=== PATIENT | female | born 1945 | race Caucasian/White ===

== ENCOUNTER → 2017-07-17 | Outpatient (CLI) | payer MEDICARE ==
[~2017-07-17] MED LIST: ALBUAER3 INH; AMLO10TA2 PO; CALC1TAB87 PO; LYRI150C PO; MAGN250T11 PO; METO10TA PO; METO25TA3 PO; MONT10TA4 PO; NEXI40CA PO; ONDA8TAB7 PO; POTA10CA PO; VITA100064 PO; VITA500T83 PO
[2017-07-17 10:24] LABS: BILIRUBIN, URINE NEG (NEG); BLOOD, URINE NEG (NEG); GLUCOSE,URINE NEG (NEG); KETONE, URINE NEG (NEG); MUCUS URINE FEW /lpf (OCC); NITRITE,URINE NEG (NEG); TRANSITIONAL EPI CELLS, URINE <1 /hpf; URINE COLOR YELLOW (YELLW/STRAW); URINE LEUKOCYTE ESTERASE TRACE (NEG)
[2017-07-17 10:25] LABS: AUTOMATED NEUTROPHIL # 3.3 TH/MM3 (1.8-7.7); BASOPHIL % 0.7 % (0.0-2.0); EOSINOPHIL # 0.1 TH/MM3 (0-0.4); EOSINOPHIL % 2.7 % (0.0-4.0); HEMATOCRIT 40.6 % (35.0-46.0); HEMOGLOBIN 13.6 GM/DL (11.6-15.3); LYMPH % 25.5 % (9.0-44.0); LYMPHOCYTE # 1.4 TH/MM3 (1.0-4.8); MEAN CELL VOLUME 87.2 FL (80.0-100.0); MEAN CORPUSCULAR HEMOGLOBIN 29.2 PG (27.0-34.0); MEAN CORPUSCULAR HGB CONC 33.5 % (32.0-36.0); MEAN PLATELET VOLUME 8.4 FL (7.0-11.0); MONO % 10.8 % (0.0-8.0); MONOCYTE # 0.6 TH/MM3 (0-0.9); NEUT % 60.3 % (16.0-70.0); PLATELET COUNT 193 TH/MM3 (150-450); RED BLOOD COUNT 4.66 MIL/MM3 (4.00-5.30); WHITE BLOOD COUNT 5.5 TH/MM3 (4.0-11.0)
--- NOTE | 2017-07-17 10:30 | RADRPT ---
EXAM DATE/TIME: 07/17/2017 10:14 [place] COMPARISON: No previous studies available for comparison. INDICATIONS : Evaluate for penumonia, pneumothorax, or communicable disease. Pre op for anterior colon resection. MEDICAL HISTORY : None. SURGICAL HISTORY : None. ENCOUNTER: Initial ACUITY: 1 day PAIN SCORE: 0/10 LOCATION: chest FINDINGS: Mild airspace disease in the medial left lung base. Cardiac silhouette is mildly enlarged. Prominent S. shaped scoliosis of the thoracolumbar spine. Old left-sided rib fractures. CONCLUSION: 1. Prominent scoliosis of the thoracolumbar spine with airspace disease in the medial left lung base likely reflecting atelectasis/scarring. Troy Garrison MD on July 17, 2017 at 10:23 Board Certified Radiologist. This report was verified electronically.
[2017-07-17 10:32] LABS: PROTHROMBIN TIME - PATIENT 10.3 SEC (9.8-11.6)
[2017-07-17 10:53] LABS: ALBUMIN 3.7 GM/DL (3.4-5.0); AST (GOT) 15 U/L (15-37); BICARBONATE 26.5 MEQ/L (21.0-32.0); BLOOD UREA NITROGEN 22 MG/DL (7-18); CALCIUM 8.3 MG/DL (8.5-10.1); CHLORIDE 107 MEQ/L (98-107); CREATININE 0.84 MG/DL (0.50-1.00); GLOMERULAR FILTRATION RATE 66 ML/MIN (>89); GLUCOSE,FASTING 85 MG/DL (74-99); SODIUM (NA) 141 MEQ/L (136-145)
[2017-07-17 10:54] LABS: ALT (GPT) 16 U/L (10-53)
[2017-07-17 10:56] LABS: ALKALINE PHOSPHATASE 86 U/L (45-117); TOTAL BILIRUBIN ADULT 0.4 MG/DL (0.2-1.0); TOTAL PROTEIN 7.2 GM/DL (6.4-8.2)
--- NOTE | 2017-07-18 06:48 | EKG ---
Date Performed: 07/17/2017 Time Performed: 09:29:27 PTAGE: 72 years EKG: SINUS BRADYCARDIA WITH FIRST DEGREE AV BLOCK ABNORMAL ECG NO PRIOR TRACING DOCTOR: Jose L Mercado Interpretating Date/Time 07/18/2017 06:46:29
== END ==
LOC: CPRE 09:00
PROVIDERS: ATTEND Colon & Rectal Surgery
DX: Z01.810 Encounter for preprocedural cardiovascular examination (principal); Z01.811 Encounter for preprocedural respiratory examination; Z01.812 Encounter for preprocedural laboratory examination; Z79.01 Long term (current) use of anticoagulants
CPT/HCPCS: 36415; 71046; 80053; 81001; 85025; 85610; 85730; 93005

== ENCOUNTER 2017-07-24 11:52 | Inpatient (IN) | payer MEDICARE ==
[~2017-07-24] VITALS: Ht 172.7 cm; Wt 82.3 kg
[2017-07-24] MEDS ORDERED: VECURONIUM BROMIDE 20 MG VIAL IV ONE (12:00)
[2017-07-24] MEDS ORDERED: DEXAMETHASONE SOD PHOS 4 MG/ML VIAL IV ONE (12:00)
[2017-07-24] MEDS ORDERED: ePHEDrine/NS 25 MG/5 ML SYRINGE IV ONE (12:00)
[2017-07-24] MEDS ORDERED: PROPOFOL 200 MG/20 ML AMP IV ONE (12:00)
[2017-07-24] MEDS ORDERED: ONDANSETRON HCL 4 MG/2 ML VIAL IV ONE (12:00)
[2017-07-24] MEDS ORDERED: ROCURONIUM INJ 50 MG/5 ML SYRINGE IV PUSH ONE (12:00)
[2017-07-24] MEDS ORDERED: SODIUM CHLORIDE 0.9% 20 ML VIAL IV ONE (12:00)
[2017-07-24] MEDS ORDERED: GLYCOPYRROLATE 1 MG/5 ML SYRINGE IV PUSH ONE (12:00)
[2017-07-24] MEDS ORDERED: LIDOCAINE HCL 1% PF 5 ML SYRINGE OTHER ONE (12:00)
[2017-07-24] MEDS ORDERED: SODIUM CHLORID 0.9% 500 ML IV PRN (13:00)
[2017-07-24] MEDS ORDERED: ALVIMOPAN 12 MG CAPSULE - On Call PO SCH (13:00)
[2017-07-24] MEDS ORDERED: LACTATED RINGER'S 1000 ML IV PRN (13:00)
[2017-07-24] MEDS ORDERED: POVIDONE IODINE 5% (ANTISEPSIS KIT) 4 APPLICATIONS EACH NARE PRN (13:00)
[2017-07-24] MEDS ORDERED: METRONIDAZOLE 500 MG/100 ML ISONTONIC SOLN IV SCH (13:00)
[2017-07-24] MEDS ORDERED: METOPROLOL TARTRATE 25 MG TAB PO PRN (13:00)
[2017-07-24] MEDS ORDERED: CHLORHEXIDINE GLUCONATE 2 % 1 PACK (2 CLOTHS) TOPICAL PRN (13:00)
[2017-07-24] MEDS ORDERED: ceFAZolin 1,000 MG/NS 100 ML IV SCH ×2 (13:00)
[2017-07-24] MEDS ORDERED: SCOPOLAMINE 1.5 MG PATCH ONE (13:18)
[2017-07-24] MEDS ORDERED: APREPITANT 40 MG CAP ONE (13:19)
--- NOTE | 2017-07-24 14:09 | PD.HP.UP ---
H&P Update Note The Pre-Admit History and Physical Examination regarding the above named patient was reviewed (including, but not limited to, vital signs, heart, lungs, co-morbid conditions), and upon re-examination it is noted that: the patient's condition has not significantly changed since the last examination. Jerman Geiger MD Jul 24, 2017 14:09
[2017-07-24] MEDS ORDERED: PROPOFOL 500 MG/50 ML INJ 0 ML ONE (14:28)
[2017-07-24] MEDS ORDERED: KETAMINE HCL 500 MG/5 ML VIAL ONE (14:29)
[2017-07-24] MEDS ORDERED: ACETAMINOPHEN 1000 MG/100 ML 100 ML IV ONE (14:29)
[2017-07-24] MEDS ORDERED: LIDOCAINE HCL 2% 20 ML VIAL ONE ×2 (14:34→14:36)
[2017-07-24] MEDS ORDERED: PROPOFOL 500 MG/50 ML INJ 150 ML ONE (14:35)
[2017-07-24] MEDS ORDERED: LIDOCAINE HCL 1% PF 5 ML AMPULE ONE ×2 (14:35→14:37)
--- NOTE | 2017-07-24 15:28 | PD.OP ---
Operative Report Date of Surgery: Jul 24, 2017 Preoperative Diagnosis: (1) Diverticulitis Postoperative Diagnosis: (1) Diverticulitis Procedure: Cystoscopy and placement of bilateral ureteral catheters Anesthesia: General Surgeon: Sandeep Wei Spiral Binder(s): None Operation and Findings: Indication for urologic procedures: Consulted intraoperatively to place bilateral ureteral catheters to aid in visualization of this patient's ureters during her colorectal procedure. Urologic surgery procedures in detail: Concurrent with the colorectal surgeons, I proceeded with cystoscopy and placement of bilateral ureteral catheters as follows: Initially cystoscopic evaluation was performed utilizing the rigid cystoscope with the 22 Australian sheath and 30 lens. Both right and left ureteral orifices were in correct anatomic position draining clear yellow urine. There were no areas suspicious for tumor or fistula formation. There was some diffuse mild erythema throughout the bladder consistent with chronic cystitis. No other abnormalities were seen. I then proceeded with placing a sensor 0.035 wire up the patient's left ureter until a small amount of resistance was met. A 6 Australian open-ended ureteral catheter was then advanced over this wire 25 cm in a cephalad direction. With the catheter in place the wire was withdrawn and reintroduced through secondary site via the cystoscope. In similar fashion, the contralateral side was accomplished. With both catheters in place, the cystoscope and wire were withdrawn and a 16 Australian 10 cc García catheter was placed. The ureteral catheters were then anchored to the García via a connector. All 3 catheters were then placed to gravity drainage. This completes the urologic surgery portion of combined procedures on this patient. Sandeep Wei MD Jul 24, 2017 15:28
[2017-07-24] MEDS ORDERED: SUGAMMADEX SODIUM 200 MG/2 ML VIAL IV PUSH ONE (16:36)
[2017-07-24] MEDS ORDERED: MORPHINE SULFATE 30 MG/30 ML PCA IV SCH (17:00)
[2017-07-24] MEDS ORDERED: ACETAMINOPHEN 325 MG TAB PO PRN (17:00)
[2017-07-24] MEDS ORDERED: Post-op Orders (for Pharmacy) XX ONE (17:00)
[2017-07-24] MEDS: METOPROLOL TARTRATE 25 MG TAB PO SCH (17:00)
[2017-07-24] MEDS: PREGABALIN 75 MG CAP PO SCH (17:00)
[2017-07-24] MEDS ORDERED: ALBUTEROL SULFATE 90 MCG/ACT HFA 8 GM INHALER INH PRN (17:00)
[2017-07-24] MEDS ORDERED: POTASSIUM CHLOR 20 MEQ PREMIX 100 ML IV PRN (17:00)
[2017-07-24] MEDS ORDERED: ENALAPRILAT 2.5 MG/2 ML VIAL IV PUSH PRN (17:00)
[2017-07-24] MEDS ORDERED: BENZOCAINE 6 MG/MENTHOL 10 MG LOZENGE BUCCAL PRN (17:00)
[2017-07-24] MEDS ORDERED: NALOXONE HCL 0.4 MG/ML AMP IV PUSH PRN (17:00)
[2017-07-24] MEDS ORDERED: POTASSIUM CHLOR 40 MEQ PREMIX 100 ML IV PRN (17:00)
[2017-07-24] MEDS ORDERED: DO NOT ADM ANY ANTICOAGULANT DRUGS PRN (17:06)
[2017-07-24] MEDS ORDERED: MIDAZOLAM HCL 2 MG/2 ML VIAL ONE (17:11)
[2017-07-24] MEDS: D5-NS + KCL 20 MEQ INJ 1,000 ML IV SCH ×2 (17:40→22:29)
[2017-07-24] MEDS ORDERED: *ONDANSETRON 4 MG VIAL PERIprocedural Use ONLY ONE (18:25)
[2017-07-24 18:41] VITALS: BP 127/72; PULSE 69; RESP 16; TEMP 98; O2SAT 92
[2017-07-24] MEDS: DEXT 5%-NACL 0.9% 1000 ML INJ 1,000 ML IV SCH ×3 (18:42→23:56)
[2017-07-24] MEDS: ONDANSETRON HCL 4 MG/2 ML VIAL IV PUSH PRN (19:02)
[2017-07-24 20:00] VITALS: BP 129/65; PULSE 68; PULSE 70; RESP 16; TEMP 97.6; O2SAT 93
[2017-07-24 20:12] VITALS: PULSE 73
[2017-07-24] MEDS: METOCLOPRAMIDE HCL 10 MG/2 ML VIAL IVS SCH (20:54)
[2017-07-24] MEDS: metroNIDAZOLE 500 MG INJ 100 ML IV SCH (20:54)
[2017-07-24] MEDS: MONTELUKAST SODIUM 10 MG TAB PO SCH (20:54)
[2017-07-24 21:00] VITALS: PULSE 74
[2017-07-24] MEDS: KETOROLAC TROMETHAMINE 30 MG/ML (IVP) VIAL IVP PRN (21:14)
[2017-07-24 22:00] VITALS: PULSE 76
[2017-07-24 23:00] VITALS: PULSE 78
[2017-07-25] VITALS (16 sets, daily range): BP systolic 142–153; BP diastolic 65–95; PULSE 66–92; RESP 16–18; TEMP 98–99.1; O2SAT 92–96
[2017-07-25] MEDS: D5-NS + KCL 20 MEQ INJ 1,000 ML IV SCH ×3 (04:30→23:41)
[2017-07-25] MEDS: METOCLOPRAMIDE HCL 10 MG/2 ML VIAL IVS SCH ×2 (04:51→09:54)
[2017-07-25] MEDS: metroNIDAZOLE 500 MG INJ 100 ML IV SCH ×2 (04:51→13:27)
[2017-07-25] MEDS: PCA - TOTAL MG MORPHINE DELIVERED PER SHIFT SCH ×3 (06:29→22:00)
[2017-07-25] MEDS: ONDANSETRON HCL 4 MG/2 ML VIAL IV PUSH PRN ×3 (07:06→20:01)
[2017-07-25 07:29] LABS: AUTOMATED NEUTROPHIL # 9.8 TH/MM3 (1.8-7.7); LYMPH % 4.6 % (9.0-44.0); LYMPHOCYTE # 0.5 TH/MM3 (1.0-4.8); MEAN CELL VOLUME 86.9 FL (80.0-100.0); MEAN CORPUSCULAR HEMOGLOBIN 28.9 PG (27.0-34.0); MEAN CORPUSCULAR HGB CONC 33.2 % (32.0-36.0); MEAN PLATELET VOLUME 8.7 FL (7.0-11.0); MONO % 7.6 % (0.0-8.0); MONOCYTE # 0.9 TH/MM3 (0-0.9); NEUT % 87.8 % (16.0-70.0); PLATELET COUNT 160 TH/MM3 (150-450); RED BLOOD COUNT 4.48 MIL/MM3 (4.00-5.30); RED CELL DISTRIBUTION WIDTH 14.5 % (11.6-17.2); WHITE BLOOD COUNT 11.1 TH/MM3 (4.0-11.0)
[2017-07-25 07:47] LABS: BICARBONATE 20.2 MEQ/L (21.0-32.0); CALCIUM 8.2 MG/DL (8.5-10.1); CREATININE 0.79 MG/DL (0.50-1.00)
[2017-07-25] MEDS ORDERED: ALVIMOPAN 12 MG CAPSULE - Post-op dosing PO SCH (09:00)
[2017-07-25] MEDS: PANTOPRAZOLE SOD 40 MG DELAYED RELEASE TAB PO SCH (09:54)
[2017-07-25] MEDS: PREGABALIN 75 MG CAP PO SCH (09:54)
[2017-07-25] MEDS: PANTOPRAZOLE SODIUM 40 MG VIAL IVP SCH (09:54)
[2017-07-25] MEDS: METOPROLOL TARTRATE 25 MG TAB PO SCH (09:54)
[2017-07-25] MEDS: KETOROLAC TROMETHAMINE 30 MG/ML (IVP) VIAL IVP PRN ×2 (14:19→21:51)
[2017-07-25] MEDS: PROMETHAZINE INJ 25 MG/ML VIAL IM PRN ×2 (15:12→20:00)
--- NOTE | 2017-07-25 16:07 | HHI.PR ---
Subjective Remarks C/R Surg POD #1 afebrile, VSS UO good stent dc'd Objective - Vital Signs Date Time Temp Pulse Resp B/P (MAP) Pulse Ox O2 Delivery O2 Flow Rate FiO2 07/25/17 11:39 98.0 81 17 147/65 (92) 96 07/25/17 08:04 Nasal Cannula 2.00 Result Diagram: 07/25/17 0526 07/25/17 05 Objective Remarks PE alert Abd - soft, wound dry, min tympany A/P Assessment and Plan Imp: stable, OOB decr IVF tx to floor Jerman Geiger MD Jul 25, 2017 16:07
[2017-07-25] MEDS: ALVIMOPAN 12 MG CAPSULE PO SCH (21:00)
[2017-07-25] MEDS: MONTELUKAST SODIUM 10 MG TAB PO SCH (21:00)
[2017-07-26] VITALS (22 sets, daily range): BP systolic 131–164; BP diastolic 69–92; PULSE 64–86; RESP 16–18; TEMP 97.9–98.6; O2SAT 91–96
[2017-07-26] MEDS: PCA - TOTAL MG MORPHINE DELIVERED PER SHIFT SCH ×3 (06:00→21:18)
[2017-07-26 06:22] LABS: AUTOMATED NEUTROPHIL # 9.7 TH/MM3 (1.8-7.7); BASOPHIL % 0.2 % (0.0-2.0); HEMATOCRIT 38.6 % (35.0-46.0); HEMOGLOBIN 12.7 GM/DL (11.6-15.3); LYMPH % 10.2 % (9.0-44.0); LYMPHOCYTE # 1.3 TH/MM3 (1.0-4.8); MEAN CELL VOLUME 87.7 FL (80.0-100.0); MEAN CORPUSCULAR HEMOGLOBIN 28.9 PG (27.0-34.0); MEAN CORPUSCULAR HGB CONC 32.9 % (32.0-36.0); MEAN PLATELET VOLUME 8.7 FL (7.0-11.0); MONO % 11.2 % (0.0-8.0); MONOCYTE # 1.4 TH/MM3 (0-0.9); NEUT % 78.4 % (16.0-70.0); PLATELET COUNT 145 TH/MM3 (150-450); RED CELL DISTRIBUTION WIDTH 14.9 % (11.6-17.2); WHITE BLOOD COUNT 12.3 TH/MM3 (4.0-11.0)
[2017-07-26 07:04] LABS: BICARBONATE 19.5 MEQ/L (21.0-32.0); CALCIUM 9.1 MG/DL (8.5-10.1); CREATININE 1.24 MG/DL (0.50-1.00)
[2017-07-26] MEDS: ALVIMOPAN 12 MG CAPSULE PO SCH ×2 (08:42→21:17)
[2017-07-26] MEDS: METOPROLOL TARTRATE 25 MG TAB PO SCH (08:43)
[2017-07-26] MEDS: PANTOPRAZOLE SOD 40 MG DELAYED RELEASE TAB PO SCH (08:43)
[2017-07-26] MEDS: PREGABALIN 75 MG CAP PO SCH (08:43)
[2017-07-26] MEDS: D5-NS + KCL 20 MEQ INJ 1,000 ML IV SCH ×3 (08:47→21:19)
[2017-07-26] MEDS: PANTOPRAZOLE SODIUM 40 MG VIAL IVP SCH (08:54)
--- NOTE | 2017-07-26 11:31 | HHI.PR ---
Subjective Remarks C/R Surg POD #2 afebrile, VSS UO good stent dc'd NGT placed for vomiting - mod output Objective - Vital Signs Date Time Temp Pulse Resp B/P (MAP) Pulse Ox O2 Delivery O2 Flow Rate FiO2 07/26/17 07:01 72 07/26/17 06:00 16 07/26/17 04:16 98.1 131/71 (91) 95 07/25/17 08:04 Nasal Cannula 2.00 Result Diagram: 07/26/17 0508 07/26/17 0508 Objective Remarks PE alert Abd - soft, wound dry, min tympany +flatus A/P Assessment and Plan Imp: stable, OOB decr IVF tx to floor NGT to gravity Jerman Geiger MD Jul 26, 2017 11:31
--- NOTE | 2017-07-26 12:33 | MP ---
cc: Jerman Geiger MD, John T MD DATE OF OPERATION: 07/24/2017 PREOPERATIVE DIAGNOSIS: History of diverticulitis, history of colostomy. PROCEDURE: Exploratory laparotomy with lysis of adhesions, segmental colon resection and low pelvic anastomosis, closure of colostomy. POSTOPERATIVE DIAGNOSIS: History of diverticulitis, history of colostomy. SURGEON: Jerman Geiger MD DEPARTMENT CHAIR: Sukh March MD PROCEDURE: Patient was placed in the supine position. After adequate general anesthesia, her legs were placed in the universal stirrups and supported appropriately. The abdomen and perineum were then prepped with Betadine solution and draped in the usual sterile fashion. With Dr. March's assistance, the abdomen was opened through the previous midline incision encountering very attenuated fascia almost a midline hernia. The peritoneal was opened and the abdomen explored. There were some adhesions, but just a few in the pelvis stuck down to Sofia pouch. These were gently and sharply dissected up freeing the pelvis. Further exploration revealed the liver to be pretty normal. The stomach and duodenum were unremarkable. The gallbladder was pretty normal. No sign of any stones. The uterus and ovaries were surgically absent. The Sofia pouch was found to be very small and atrophic, but without signs of acute inflammation. The great vessels were somewhat calcified, but of normal caliber. First, the colostomy was taken down from the abdominal wall releasing its fascial attachments and bringing it back into the abdomen. Dissection then proceeded up the left gutter taking down the splenic flexure into the lesser sac and mobilizing the gastrocolic omentum off the transverse colon. The Sofia pouch was then placed on the traction and mobilized off the presacral fascia identifying the presacral nerves and preserving them. The pedicle for the superior hemorrhoidal vessels was still intact and this was identified and divided between Nicki's obtaining hemostasis with Vicryl ties. Dissection then proceeded down to the proximal rectum at which point the mesorectum was taken and the bowel divided using a pursestring suture device and a Doron clamp. Additional lengthening was very minimal to enable the left colon to reach the rectal pouch without tension and with good blood supply. The distal end of the colon was trimmed back taking the marginal artery at the appropriate point and dividing the distal end between a pursestring suture device and a Doron clamp. The end of the bowel was sized to accept an EEA stapling anvil and this was secured with a pursestring suture. Dr. March then inserted the EEA stapling instrument transanally under direct vision and it was brought up to the end of the rectal pouch, the pursestring suture tied, the stapler was then reassembled, the bowel aligned properly, the stapler closed and fired. Upon withdrawal, 2 complete doughnuts of tissue was seen. Gentle insufflation did confirm an air-tight anastomosis. The abdomen was then irrigated copiously with normal saline. Adequate hemostasis achieved. A Omar-Joseph drain placed down into the presacral space and brought up through a stab wound in the right lower quadrant secured to the skin with a nylon suture. Next, attention was turned to the abdominal wound. Bilateral flaps were raised getting back to more substantial fascia and the rectus muscles. The attenuated fascia in the midline was trimmed, as was the hernia sac. After appropriate debridement and mobilization, the bowel near the fascia did come together with some tension using a running #1 PDS suture. Relaxing incisions on both sides were done in the rectus sheaths giving us much less tension on the closure. The subcutaneous tissues were irrigated copiously and the subcutaneous tissues were closed to the midline with interrupted Vicryl sutures and the skin closed after irrigation with a row of surgical carol. The wound area washed with normal saline and dried. A sterile dressing of Telfa and gauze applied. The patient tolerated the procedure quite well and was brought to the recovery room in stable condition. Sponge and needle counts were correct at the end of the procedure. Jerman Geiger MD AHR/DL , 11:37 AM , 12:32 PM
[2017-07-26] MEDS: KETOROLAC TROMETHAMINE 30 MG/ML (IVP) VIAL IVP PRN (15:16)
[2017-07-26] MEDS: METOCLOPRAMIDE HCL 10 MG/2 ML VIAL IVS SCH ×2 (15:17→21:18)
[2017-07-26] MEDS: MONTELUKAST SODIUM 10 MG TAB PO SCH (21:17)
[2017-07-26] MEDS: ENALAPRILAT 1.25 MG/ML VIAL IV PUSH PRN (21:18)
[2017-07-27] VITALS (20 sets, daily range): BP systolic 115–157; BP diastolic 66–84; PULSE 54–100; RESP 16–18; TEMP 97.9–98.4; O2SAT 92–95
[2017-07-27] MEDS: KETOROLAC TROMETHAMINE 30 MG/ML (IVP) VIAL IVP PRN ×2 (03:40→10:35)
[2017-07-27] MEDS: D5-NS + KCL 20 MEQ INJ 1,000 ML IV SCH ×2 (03:41→21:55)
[2017-07-27] MEDS: ACETAMINOPHEN/HYDROcodone 325 MG/5 MG TAB PO PRN ×4 (03:41→21:35)
[2017-07-27] MEDS: METOCLOPRAMIDE HCL 10 MG/2 ML VIAL IVS SCH ×3 (05:57→21:36)
[2017-07-27] MEDS: PCA - TOTAL MG MORPHINE DELIVERED PER SHIFT SCH (05:57)
[2017-07-27] MEDS: FUROSEMIDE 20 MG/2 ML VIAL IV PUSH SCH ×2 (08:49→17:26)
[2017-07-27] MEDS: PANTOPRAZOLE SOD 40 MG DELAYED RELEASE TAB PO SCH (08:49)
[2017-07-27] MEDS: PANTOPRAZOLE SODIUM 40 MG VIAL IVP SCH (08:49)
[2017-07-27] MEDS: PREGABALIN 75 MG CAP PO SCH (08:49)
[2017-07-27] MEDS: ALVIMOPAN 12 MG CAPSULE PO SCH ×2 (08:49→21:34)
[2017-07-27] MEDS: METOPROLOL TARTRATE 25 MG TAB PO SCH (08:50)
--- NOTE | 2017-07-27 17:26 | HHI.PR ---
Subjective Remarks C/R Surg POD #3 afebrile, VSS UO good dutta out +flatus Objective - Vital Signs Date Time Temp Pulse Resp B/P (MAP) Pulse Ox O2 Delivery O2 Flow Rate FiO2 07/27/17 15:46 18 07/27/17 15:15 98.0 88 142/79 (100) 95 07/27/17 08:15 Nasal Cannula 2.00 Result Diagram: 07/26/17 0508 07/26/17 0508 Objective Remarks PE alert Abd - soft, wound dry, min tympany +flatus A/P Assessment and Plan Imp: stable, OOB decr IVF tx to floor adv diet dc CHILD CARE COORDINATOR Jerman Geiger MD Jul 27, 2017 17:26
[2017-07-27] MEDS: MONTELUKAST SODIUM 10 MG TAB PO SCH (21:34)
[2017-07-28] VITALS (8 sets, daily range): BP systolic 118–161; BP diastolic 59–90; PULSE 67–81; RESP 17–20; TEMP 97.4–100.4; O2SAT 91–96
[2017-07-28] MEDS: METOCLOPRAMIDE HCL 10 MG/2 ML VIAL IVS SCH ×3 (05:26→20:05)
[2017-07-28] MEDS: ACETAMINOPHEN/HYDROcodone 325 MG/5 MG TAB PO PRN ×3 (08:29→20:05)
[2017-07-28] MEDS: PREGABALIN 75 MG CAP PO SCH (08:29)
[2017-07-28] MEDS: METOPROLOL TARTRATE 25 MG TAB PO SCH (08:29)
[2017-07-28] MEDS: ALVIMOPAN 12 MG CAPSULE PO SCH ×2 (08:29→20:06)
[2017-07-28] MEDS: PANTOPRAZOLE SOD 40 MG DELAYED RELEASE TAB PO SCH (08:30)
[2017-07-28] MEDS: PANTOPRAZOLE SODIUM 40 MG VIAL IVP SCH (08:30)
[2017-07-28] MEDS: FUROSEMIDE 20 MG/2 ML VIAL IV PUSH SCH (08:32)
--- NOTE | 2017-07-28 09:46 | HHI.PR ---
Subjective Remarks C/O chronic urinary incontinence, worse while on Lasix Objective Vital Signs Date Time Temp Pulse Resp B/P (MAP) Pulse Ox O2 Delivery O2 Flow Rate FiO2 07/28/17 08:00 100.4 79 17 140/78 (98) 91 07/28/17 05:00 98.8 81 18 140/76 (97) 94 07/28/17 04:06 80 07/28/17 00:00 97.4 76 18 126/70 (88) 94 07/27/17 23:59 71 07/27/17 22:00 98.4 83 18 131/72 (91) 93 07/27/17 20:00 Room Air 07/27/17 18:00 72 07/27/17 17:00 70 07/27/17 16:00 64 07/27/17 15:46 18 07/27/17 15:15 98.0 88 18 142/79 (100) 95 07/27/17 15:00 62 07/27/17 14:01 68 07/27/17 13:00 58 07/27/17 12:15 97.9 64 18 115/68 (84) 93 07/27/17 12:00 54 07/27/17 11:00 73 07/27/17 10:00 62 I/O 07/27/17 07/27/17 07/27/17 07/28/17 07/28/17 07/28/17 07:00 15:00 23:00 07:00 15:00 23:00 Intake Total 859 ml 1620 ml 240 ml Output Total 630 ml 1275 ml 430 ml Balance 229 ml 345 ml -190 ml Intake Oral 240 ml 720 ml 240 ml IV Total 619 ml 900 ml Output Urine Total 625 ml 1275 ml 400 ml Drainage Total 5 ml 30 ml # Voids 3 # Bowel Movements 0 0 Result Diagram: 07/26/17 0508 07/26/17 0508 Objective Remarks VS-S Abd: soft, wound with some serous drainage inferiorly. I&Os-OK Assessment and Plan Assessment and Plan POD#4 D/C Lasix, Ambulate in robison. Wants regular diet Maxim March MD Jul 28, 2017 09:46
[2017-07-28] MEDS: D5-NS + KCL 20 MEQ INJ 1,000 ML IV SCH (17:45)
[2017-07-28] MEDS: ENALAPRILAT 1.25 MG/ML VIAL IV PUSH PRN (20:05)
[2017-07-28] MEDS: MONTELUKAST SODIUM 10 MG TAB PO SCH (20:06)
[2017-07-29] VITALS (7 sets, daily range): BP systolic 136–168; BP diastolic 72–84; PULSE 69–89; RESP 17–21; TEMP 97.6–99.4; O2SAT 91–97
[2017-07-29] MEDS: ACETAMINOPHEN/HYDROcodone 325 MG/5 MG TAB PO PRN ×5 (02:42→22:02)
[2017-07-29] MEDS: METOCLOPRAMIDE HCL 10 MG/2 ML VIAL IVS SCH ×3 (05:19→21:56)
[2017-07-29] MEDS: PREGABALIN 75 MG CAP PO SCH (08:58)
[2017-07-29] MEDS: PANTOPRAZOLE SOD 40 MG DELAYED RELEASE TAB PO SCH (08:58)
[2017-07-29] MEDS: PANTOPRAZOLE SODIUM 40 MG VIAL IVP SCH (08:58)
[2017-07-29] MEDS: ALVIMOPAN 12 MG CAPSULE PO SCH ×2 (08:58→21:56)
[2017-07-29] MEDS: METOPROLOL TARTRATE 25 MG TAB PO SCH (08:58)
--- NOTE | 2017-07-29 10:02 | HHI.PR ---
Subjective Remarks C/O chronic urinary incontinence, Tolerating regular diet. Ambulated in robison x 2 yesterday. No N or V. Objective Vital Signs Date Time Temp Pulse Resp B/P (MAP) Pulse Ox O2 Delivery O2 Flow Rate FiO2 07/29/17 08:00 98.9 81 19 143/83 (103) 92 07/29/17 04:57 98.6 78 17 140/75 (96) 93 07/29/17 04:33 78 07/29/17 04:02 18 07/29/17 00:00 97.6 83 18 155/74 (101) 97 07/29/17 00:00 78 07/28/17 20:40 74 07/28/17 20:00 100.0 69 18 161/79 (106) 96 07/28/17 16:00 98.6 72 20 151/90 (110) 94 07/28/17 12:00 99.9 67 18 118/59 (78) 91 I/O 07/28/17 07/28/17 07/28/17 07/29/17 07/29/17 07/29/17 07:00 15:00 23:00 07:00 15:00 23:00 Intake Total 240 ml 1000 ml 580 ml Output Total 430 ml 25 ml Balance -190 ml 975 ml 580 ml Intake Oral 240 ml 580 ml IV Total 1000 ml Output Urine Total 400 ml Drainage Total 30 ml 25 ml # Voids 3 4 # Bowel Movements 0 Result Diagram: 07/26/17 0508 07/26/17 0508 Objective Remarks VS-S Abd: soft, wound with some serous drainage inferiorly. I&Os-OK Assessment and Plan Assessment and Plan POD#5 Ambulate in robison. Remove Maxim Goodman MD Jul 29, 2017 10:02
[2017-07-29] MEDS: D5-NS + KCL 20 MEQ INJ 1,000 ML IV SCH (18:05)
[2017-07-29] MEDS: MONTELUKAST SODIUM 10 MG TAB PO SCH (21:56)
[2017-07-30] VITALS: BP 130/74; PULSE 64; RESP 18; TEMP 98.7; O2SAT 92
[2017-07-30] MEDS: ACETAMINOPHEN/HYDROcodone 325 MG/5 MG TAB PO PRN ×6 (02:14→23:53)
[2017-07-30] MEDS: METOCLOPRAMIDE HCL 10 MG/2 ML VIAL IVS SCH ×3 (04:56→21:00)
[2017-07-30 06:24] LABS: AUTOMATED NEUTROPHIL # 5.3 TH/MM3 (1.8-7.7); BASOPHIL % 0.4 % (0.0-2.0); EOSINOPHIL # 0.3 TH/MM3 (0-0.4); EOSINOPHIL % 3.8 % (0.0-4.0); HEMOGLOBIN 11.5 GM/DL (11.6-15.3); LYMPH % 12.9 % (9.0-44.0); LYMPHOCYTE # 0.9 TH/MM3 (1.0-4.8); MEAN CELL VOLUME 85.7 FL (80.0-100.0); MEAN CORPUSCULAR HGB CONC 33.9 % (32.0-36.0); MEAN PLATELET VOLUME 8.5 FL (7.0-11.0); MONO % 9.7 % (0.0-8.0); MONOCYTE # 0.7 TH/MM3 (0-0.9); NEUT % 73.2 % (16.0-70.0); PLATELET COUNT 145 TH/MM3 (150-450); RED BLOOD COUNT 3.97 MIL/MM3 (4.00-5.30); RED CELL DISTRIBUTION WIDTH 14.6 % (11.6-17.2); WHITE BLOOD COUNT 7.2 TH/MM3 (4.0-11.0)
[2017-07-30 07:02] LABS: BICARBONATE 28.3 MEQ/L (21.0-32.0); CALCIUM 8.3 MG/DL (8.5-10.1); CREATININE 0.42 MG/DL (0.50-1.00)
[2017-07-30 08:00] VITALS: BP 131/76; PULSE 79; RESP 18; TEMP 98.2; O2SAT 92
[2017-07-30] MEDS: PANTOPRAZOLE SODIUM 40 MG VIAL IVP SCH (08:05)
[2017-07-30] MEDS: METOPROLOL TARTRATE 25 MG TAB PO SCH (08:08)
[2017-07-30] MEDS: ALVIMOPAN 12 MG CAPSULE PO SCH ×2 (08:08→20:59)
[2017-07-30] MEDS: PANTOPRAZOLE SOD 40 MG DELAYED RELEASE TAB PO SCH (08:08)
[2017-07-30] MEDS: PREGABALIN 75 MG CAP PO SCH (08:08)
[2017-07-30 12:00] VITALS: BP 140/67; PULSE 66; RESP 18; TEMP 98.5; O2SAT 91
[2017-07-30 16:00] VITALS: BP 147/72; PULSE 66; RESP 16; TEMP 99; O2SAT 93
[2017-07-30] MEDS: D5-NS + KCL 20 MEQ INJ 1,000 ML IV SCH (16:28)
[2017-07-30 20:00] VITALS: BP 145/77; PULSE 89; RESP 18; TEMP 99.8; O2SAT 92
[2017-07-30] MEDS: MONTELUKAST SODIUM 10 MG TAB PO SCH (20:59)
[2017-07-30] MEDS: POTASSIUM CHLORIDE 20 MEQ CONTROLLED RELEASE TAB PO SCH (20:59)
--- NOTE | 2017-07-30 21:21 | HHI.PR ---
Subjective Remarks C/R Surg POD #6 afebrile, VSS UO good dutta out +flatus Objective - Vital Signs Date Time Temp Pulse Resp B/P (MAP) Pulse Ox O2 Delivery O2 Flow Rate FiO2 07/30/17 16:00 99.0 66 16 147/72 (97) 93 07/30/17 08:05 Nasal Cannula 2.00 Result Diagram: 07/30/1725 07/30/17 0525 Objective Remarks PE alert Abd - soft, wound dry, min tympany +flatus, non-tender A/P Assessment and Plan Imp: stable, OOB decr IVF adv diet suppl KCL Jerman Geiger MD Jul 30, 2017 21:21
[2017-07-31] VITALS: BP 144/93; PULSE 104; RESP 20; TEMP 98.5; O2SAT 92
[2017-07-31] MEDS: ENALAPRILAT 1.25 MG/ML VIAL IV PUSH PRN (05:07)
[2017-07-31] MEDS: METOCLOPRAMIDE HCL 10 MG/2 ML VIAL IVS SCH ×3 (05:07→23:11)
[2017-07-31] MEDS: METOPROLOL TARTRATE 25 MG TAB PO SCH (07:53)
[2017-07-31] MEDS: PANTOPRAZOLE SOD 40 MG DELAYED RELEASE TAB PO SCH (07:54)
[2017-07-31] MEDS: PREGABALIN 75 MG CAP PO SCH (07:54)
[2017-07-31] MEDS: ALVIMOPAN 12 MG CAPSULE PO SCH ×2 (07:54→23:10)
[2017-07-31] MEDS: POTASSIUM CHLORIDE 20 MEQ CONTROLLED RELEASE TAB PO SCH ×2 (07:54→23:10)
[2017-07-31] MEDS: PANTOPRAZOLE SODIUM 40 MG VIAL IVP SCH (07:54)
[2017-07-31] MEDS: ONDANSETRON HCL 4 MG/2 ML VIAL IV PUSH PRN (07:57)
[2017-07-31 08:00] VITALS: BP 177/93; PULSE 113; RESP 18; TEMP 95.2; O2SAT 94
[2017-07-31 12:00] VITALS: BP 134/71; PULSE 76; RESP 18; TEMP 98.9; O2SAT 93
[2017-07-31 16:00] VITALS: BP 122/74; PULSE 85; RESP 18; TEMP 99.5; O2SAT 93
[2017-07-31 20:00] VITALS: BP 156/83; PULSE 105; RESP 20; TEMP 97.8; O2SAT 92
[2017-07-31] MEDS: MONTELUKAST SODIUM 10 MG TAB PO SCH (23:10)
[2017-08-01] VITALS: BP 167/87; PULSE 100; RESP 20; TEMP 98; O2SAT 94
[2017-08-01] MEDS: METOCLOPRAMIDE HCL 10 MG/2 ML VIAL IVS SCH (04:32)
[2017-08-01 08:00] VITALS: BP 147/77; PULSE 95; RESP 16; TEMP 98.6; O2SAT 92
[2017-08-01] MEDS: PANTOPRAZOLE SODIUM 40 MG VIAL IVP SCH (09:00)
[2017-08-01] MEDS: POTASSIUM CHLORIDE 20 MEQ CONTROLLED RELEASE TAB PO SCH (09:19)
[2017-08-01] MEDS: METOPROLOL TARTRATE 25 MG TAB PO SCH (09:19)
[2017-08-01] MEDS: PANTOPRAZOLE SOD 40 MG DELAYED RELEASE TAB PO SCH (09:19)
[2017-08-01] MEDS: ALVIMOPAN 12 MG CAPSULE PO SCH (09:19)
[2017-08-01] MEDS: PREGABALIN 75 MG CAP PO SCH (09:20)
[2017-08-01] MEDS: ONDANSETRON HCL 4 MG/2 ML VIAL IV PUSH PRN (09:20)
== END 2017-08-01 11:06 | DRG 331 ==
LOC: HSDI 11:52 → HCIS 18:31 → N07B 07-27 21:18
PROVIDERS: ADMIT Colon & Rectal Surgery; ATTEND Colon & Rectal Surgery
PROC: 0T9880Z Drainage of Bilateral Ureters with Drainage Device, Via Natural or Artificial Opening Endoscopic (ICD-10-PCS; 2017-07-24)
PROC: 0DBN0ZZ Excision of Sigmoid Colon, Open Approach (ICD-10-PCS; principal; 2017-07-24 14:40)
PROC: 0DBP0ZZ Excision of Rectum, Open Approach (ICD-10-PCS; 2017-07-24 14:40)
DX: Z43.3 Encounter for attention to colostomy (principal); I48.91 Unspecified atrial fibrillation; G62.9 Polyneuropathy, unspecified; K21.9 Gastro-esophageal reflux disease without esophagitis; I10 Essential (primary) hypertension; R11.10 Vomiting, unspecified; K43.9 Ventral hernia without obstruction or gangrene; K66.0 Peritoneal adhesions (postprocedural) (postinfection); N30.20 Other chronic cystitis without hematuria; J45.909 Unspecified asthma, uncomplicated
CPT/HCPCS: 76937; 80048; 85025; 86850; 86900; 86901; 88307; 94150; C1769; C9113; J0131; J0690; J1100; J1885; J1940; J2250; J2270; J2405; J2550; J2765; J3010; J3480; J7120; J8501